=== PATIENT | male | born 1965 | race Caucasian/White ===

== ENCOUNTER 2017-08-09 16:45 | Emergency (ER) | payer BC ==
[2017-08-09] MEDS ORDERED: diphenhydrAMINE 50 MG/ML VIAL ONE (17:25)
[2017-08-09] MEDS ORDERED: Metoclopramide HCl 10 MG/2 ML VIAL ONE (17:25)
[2017-08-09] MEDS ORDERED: Ketorolac Tromethamine 30 MG/ML VIAL ONE (17:25)
[2017-08-09 18:02] LABS: Hemoglobin 14.4 g/dL (14.0-18.0); Lymphocytes 34 % (21-51); MDiff Complete? YES; Mean Corpuscular HGB CONC 34.7 g/dL (32.0-36.0); Mean Corpuscular Hemoglobin 31.1 pg (27.0-31.0); Mean Corpuscular Volume 89.8 fl (80.0-94.0); Mean Platelet Volume 7.6 fL (7.4-10.4); Monocytes 6 % (0-10); Neutrophil 60 % (42-75); PLT Morphology Comment Appears Adequate; Platelet Count 268 thou/uL (130-400); RBC Distribution Width 11.1 % (11.5-14.5); Red Blood Cell (RBC) Count 4.64 mill/uL (4.70-6.10)
[2017-08-09 18:07] LABS: ALT (SGPT) 21 U/L (8-55); AST (SGOT) 22 U/L (5-34); Albumin 4.3 g/dL (3.5-5.0); Alkaline Phosphatase 59 U/L (40-150); Anion Gap 16 mmol/L (10-20); BUN (Urea Nitrogen) 14 mg/dL (8.4-25.7); Bilirubin, Total 0.4 mg/dL (0.2-1.2); Calc. Creatinine Clearance 0 mL/min (70-130); Calcium 9.3 mg/dL (7.8-10.44); Carbon Dioxide 26 mmol/L (22-29); Chloride 102 mmol/L (98-107); Estimated GFR-MDRD 83; Globulin 3.4 g/dL (2.4-3.5); Glucose 113 mg/dL (70-105); Lipase 36 U/L (8-78); Potassium 3.8 mmol/L (3.5-5.1); Protein, Total 7.7 g/dL (6.0-8.3); Sodium 140 mmol/L (136-145)
[2017-08-09 20:03] LABS: Actual Bicarbonate (HCO3a) 27.3 mEq/L (22-26); Base Excess (BEa) 1.9 mEq/L (0 (+/-) 2.5); CO2 Tension 45.7 mmHg (35.0-45.0); Hemoglobin (Hb) 13.4 g/dL (14.0-18.0); O2 Tension (PaO2) 98.7 mmHg (80.0-100.0)
[2017-08-09 20:04] LABS: Analyzer IN Cardio ER; Calcium, Ionized 1.2 mmol/L (1.12-1.30)
[2017-08-09 20:05] LABS: ALV-art Gradient -6.095 (0-20); Puncture Site RRA
== END 2017-08-09 20:45 | disposition home or self-care (01) ==
LOC: SCSER 16:45
DX: R51 Headache (principal); I10 Essential (primary) hypertension; F41.9 Anxiety disorder, unspecified; Z79.899 Other long term (current) drug therapy
CPT/HCPCS: 80053; 82805; 83690; 85025; 96365; 96375; J1200; J1885; J2765

== ENCOUNTER 2017-10-04 12:51 | Outpatient (CLI) | payer BC | END 2017-10-04 12:52 | disposition home or self-care (01) | LOC: BICMRI 12:51 | PROVIDERS: ATTEND Family Medicine | DX: M54.2 Cervicalgia (principal); M54.5 Low back pain | CPT/HCPCS: 70210; 72141; 72148 ==

== ENCOUNTER 2017-11-19 11:51 | Emergency (ER) | payer BC ==
[2017-11-19] MEDS ORDERED: Proparacaine 0.5% Opth 15 ML BOT ONE (12:04)
[2017-11-19] MEDS ORDERED: Adacel (T-DAP) 0.5 ML VIAL ONE (12:37)
== END 2017-11-19 12:54 | disposition home or self-care (01) ==
LOC: SCSER 11:51
DX: T15.02XA Foreign body in cornea, left eye, initial encounter (principal); I10 Essential (primary) hypertension; F41.9 Anxiety disorder, unspecified; Z79.899 Other long term (current) drug therapy
CPT/HCPCS: 65220; 90471; 90715

== ENCOUNTER 2018-05-18 12:49 | Outpatient (CLI) | payer BC ==
--- NOTE | 2018-05-18 14:57 | CT ---
CERVICAL SPINE CT NONCONTRAST: INDICATION: Cervical spine radiculopathy, spondylosis. History of prior neck surgery. FINDINGS: There is an intradiskal prosthesis present at C3-4, C4-5, C5-6, and C6-7 levels. Anterior metallic p late and vertebral body screw formation present at C5, C6, and C7. There are anterior vertebral body screws traversing the C3, C4, and C5 vertebrae. There is no significant malalignment. There is str aightening of the normal cervical curvature. Degenerative hypertrophy at the C1-2 level present. No significant osseous compromise of the vertebral canal at the C1-2 level. C2-3: There is left lateral disk-osteophyte complex and uncinate process hypertrophy when combined w ith facet hypertrophy results in moderate osseous compromise of the left neural foramen. There is mi nimal narrowing of the right neural foramen. No high-grade osseous compromise of the central canal. C3-4: Bilateral facet and uncinate process hypertrophy are present which results in mild bilateral n eural foraminal narrowing. There is mild effacement of the vertebral canal. C4-5: There is prominent, asymmetric left facet degenerative hypertrophy which when combined with un cinate process hypertrophy results in severe osseous compromise of the left neural foramen. There is mild right foraminal narrowing. Mild central canal stenosis. C5-6: Broad-based osteophyte asymmetrically to the left results in mild narrowing of the central can al to the left of midline. There is moderate biforaminal narrowing due to uncinate process and facet hypertrophy. C6-7: There is mild central canal and mild left foraminal stenosis due to disk-osteophyte and uncina te process hypertrophy. There is mild to moderate narrowing of the right neural foramen. C7-T1. No significant compromise of the central canal or neural foramen identified. There is no obvious acute hardware complication. IMPRESSION: Multilevel postoperative and degenerative changes of the cervical spine as outlined above. POS: JAYDENK
== END 2018-05-18 12:50 | disposition home or self-care (01) ==
LOC: BICCT 12:49
DX: M47.22 Other spondylosis with radiculopathy, cervical region (principal); Z98.890 Other specified postprocedural states
CPT/HCPCS: 72125

== ENCOUNTER 2018-07-09 17:02 | Emergency (ER) | payer BC ==
--- NOTE | 2018-07-09 19:24 | RAD ---
LEFT ANKLE THREE VIEWS: INDICATIONS: Injury. Pain. FINDINGS: There is asymmetric soft tissue swelling at the lateral aspect of the left ankle. No underlying frac ture displacement is seen. The mortise is intact. IMPRESSION: Asymmetric soft tissue swelling of the lateral aspect of the left ankle, without underlying displaced fracture. POS: ДМИТРИЙ
== END 2018-07-09 18:00 | disposition home or self-care (01) ==
LOC: SCSER 17:02
DX: S93.402A Sprain of unspecified ligament of left ankle, initial encounter (principal); I10 Essential (primary) hypertension; F41.9 Anxiety disorder, unspecified; X50.9XXA Other and unspecified overexertion or strenuous movements or postures, initial encounter

== ENCOUNTER 2018-12-21 12:32 | Outpatient (CLI) | payer BC ==
--- NOTE | 2018-12-21 14:13 | CT ---
CT Lumbar Spine WO Con HISTORY: Low back pain with bilateral lower extremity radiculopathy. COMPARISON: None. FINDINGS: The vertebral bodies are normal in height. There is mild disc narrowing at L1-2. There is n o significant periaortic adenopathy and the visualized kidneys are normal. The canal itself is somewhat congenitally narrowed. T12-L1: Unremarkable. L1-2: Disc bulge and degenerative facet changes are present at this level there is a mild degree of c anal stenosis no foraminal narrowing. L2-3 again disc bulge and facet hypertrophic changes are seen and mild degree of canal stenosis is pr esent at this level. L3-4: Disc bulging facet and ligamentous hypertrophic changes cause a moderate degree of canal stenos is at this level. L4-5 disc bulge and facet hypertrophic changes are also causing a moderate degree of canal stenosis a t this level. L5-S1: No significant canal or foraminal narrowing appreciated at this level. IMPRESSION: Mild congenital narrowing of the canal which in conjunction with the disc and facet busch es cause areas of stenosis as described above.
--- NOTE | 2018-12-21 15:59 | CT ---
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 The patient has had two prior neck surgeries. History of the most recent surgery in January 2018 but with continued problems with bilateral shoulder pain that radiates into the skull. COMPARISON: CT cervical spine dated 05/18/18 from [facility] [place]. FINDINGS: Since the comparison examination, there has been posterolateral spinal instrumentation placed from C2 to T2. There are articular pillar screws on the right at C2, C3, C4, C5, C7, T1 and T2. On the left, articular pillar screws are seen at C2, C3, C4, C5, C6, C7, T1, and T2. There is no evidence of hard [place] loosening or fracture. There is solid interbody fusion seen at C3-4, C4-5, C5-6, and C6-7. There are interbody cages at C3-4 , C4-5. There are fibular strut grafts at C5-6 and C6-7. There is an ACDF spanning C5 through C7. Th e anterior cervical and interbody fixation is stable from the comparison. No osseous central canal is grossly evidence. There is uncovertebral hypertrophy at C2-C3. There is no appreciable osseous central canal or neural foraminal narrowing. C3-4: There is mild uncovertebral hypertrophy and facet hypertrophy but no appreciable osseous neural foraminal narrowing. At C4-5, there is no appreciable osseous central canal or neural foraminal narrowing. At C5-6, there is no appreciable osseous central canal or neural foraminal narrowing. At C6-7, there is no appreciable osseous central canal or neural foraminal narrowing. At C7-T1, there is no appreciable osseous central canal narrowing. The spinal alignment appears within normal limits. Craniocervical junction demonstrates moderate degenerative changes but no acute osseous abnormality. IMPRESSION: 1. Postoperative cervical spine with interval posterolateral cervical and upper thoracic interbo dy fusion spanning C2 through T2. There is solid osseous incorporation of the interbody bone graft fr om C3-4 through C6-7. 2. No appreciable osseous central canal or neural foraminal narrowing is demonstrated. POS: PARIS
--- NOTE | 2018-12-21 16:11 | CT ---
CT OF THE THORACIC SPINE WITHOUT CONTRAST: 12/21/18 INDICATION: History of pseudoarthrosis and radiculopathy. Patient had pseudoarthrosis after fusion arthrodesis wi th cervical radiculopathy. Patient had two prior neck surgeries, the last one being in January 2018 wi th continued problems. The patient is having bilateral shoulder pain that radiates into the skull. COMPARISON: None. FINDINGS: There is partial visualization of the cervical thoracic instrumentation detailed on the separately di ctated, concurrently performed noncontrast CT of the cervical spine. Please see this dictation for fu ll details concerning this instrumentation and the anterior and posterior interbody fusion of the cer vical and upper thoracic spine. There is multilevel marginal osteophytes and disc degenerative disease of the thoracic spine. There i s no acute fracture or subluxation evident. Spinal alignment is preserved. At C7-T1, there is no appreciable osseous central canal or neural foraminal narrowing. At T1-T2, there is facet hypertrophy and a broad based disc osteophyte complex inducing mild bilatera l osseous neural foraminal narrowing. At T2-T3, there is facet hypertrophy inducing mild bilateral osseous neural foraminal narrowing. There is an ununited T2 spinous process fracture. At T3-T4, there is some calcification of the right posterolateral ligamentum flavum. There is mild fa cet hypertrophy. There is mild right osseous neural foraminal narrowing. At T4-T5, there is no appreciable osseous central canal or neural foraminal narrowing. At T5-T6, there is no appreciable osseous central canal or neural foraminal narrowing. At T6-T7, there is no appreciable osseous central canal or neural foraminal narrowing. At T7-T8, there is no appreciable osseous central canal or neural foraminal narrowing. At T8-T9, there is no appreciable osseous central canal or neural foraminal narrowing. At T9-T10, there is no appreciable osseous central canal or neural foraminal narrowing. At T10-T11, there is no appreciable osseous central canal or neural foraminal narrowing. At T11-T12, there is no appreciable osseous central canal or neural foraminal narrowing. At T12-L1, there is no appreciable osseous central canal or neural foraminal narrowing. The visualized lungs are clear. There are no definite acute abnormalities seen within the visualized aspects of the mediastinum or upper retroperitoneum. IMPRESSION: 1. Moderate spondylosis of the thoracic spine. There is mild bilateral osseous neural foraminal narrowing at T1-T2, T2-T3 due to facet hypertrophy and a disc osteophyte complex. There is also mild right osseous neural foraminal narrowing at T3-T4 due to calcification and ligamentum flavum and face t hypertrophy. 2. Ununited spinous process fracture at T2. POS: BH
== END 2018-12-21 12:33 | disposition home or self-care (01) ==
LOC: BICCT 12:32
PROVIDERS: ATTEND Orthopaedic Surgery Orthopaedic Surgery of the Spine
DX: M96.0 Pseudarthrosis after fusion or arthrodesis (principal); M54.12 Radiculopathy, cervical region; M48.04 Spinal stenosis, thoracic region; M47.814 Spondylosis without myelopathy or radiculopathy, thoracic region; S22.028A Other fracture of second thoracic vertebra, initial encounter for closed fracture
CPT/HCPCS: 72125; 72128; 72131

== ENCOUNTER 2019-01-07 06:55 | Day surgery (SDC) | payer BC ==
[2019-01-04 11:20] VITALS: BMI 24.1
--- NOTE | 2019-01-07 10:12 | OP ---
DATE OF PROCEDURE: 01/07/2019 PROCEDURES PERFORMED: Esophagogastroduodenoscopy with biopsy and balloon dilation. INDICATION FOR PROCEDURE: Dysphagia. DESCRIPTION OF PROCEDURE: After the risks and benefits of the procedure were explained to the patient including risks of bleeding, infection, perforation, reactions to anesthesia, aspiration and/or pain, informed consent was obtained. The patient was then taken to the endoscopy suite, where deep sedation was administered via propofol and anesthesia support. Once adequate sedation was achieved, the standard gastroscope was introduced into the mouth with intubation of the esophagus, stomach, and the proximal small intestine with the findings listed below. The patient tolerated the procedure well with no immediate perioperative complications. Upon conclusion of the procedure, all equipment was removed from the patient and he was transferred to Day Stay in satisfactory condition. FINDINGS: Esophagus: Normal-appearing mucosa was seen in the proximal, mid, and distal esophagus. However, mild luminal narrowing was seen in the distal esophagus at the gastroesophageal junction, but was easily traversed with the standard gastroscope. Otherwise, there was no evidence of erosions, ulcerations, mass, lesions, or active/recent bleeding. Given the symptoms of dysphagia, biopsies were taken from both the proximal and distal esophagus for possible eosinophilic esophagitis. Given the mild luminal narrowing of the distal esophagus without overt stricture formation, the distal esophagus was dilated using a CRE-TTS balloon starting at 15 mm and successively dilating to 18 mm in size. A small mucosal tear was noted at the GE junction with any further dilation then ceased at that point. Stomach: Normal-appearing mucosa was seen in the gastric cardia, fundus, body, greater curvature, antrum, and incisura. There was no evidence of erosions, ulcerations, mass, lesions, or active/recent bleeding. Duodenum: Normal-appearing mucosa was seen in both the duodenal bulb and second portion of the duodenum. There was no evidence of erosions, ulcerations, mass, lesions, or active/recent bleeding. IMPRESSION: 1. Mild luminal narrowing without overt stricture formation in the distal esophagus status post dilation with CRE-TTS balloon to 18 mm. 2. Otherwise normal upper endoscopy. RECOMMENDATIONS: 1. We will follow up on the biopsy results with further care guided by pathology report and possible placement on fluticasone for eosinophilic esophagitis if positive. 2. Would increase omeprazole to 40 mg daily given evidence of acid reflux in the past and possible source of his dysphagia symptoms. 3. Continue current medications. 4. Followup in the GI clinic in 3 weeks for repeat evaluation of his dysphagia symptoms. If he has continued to have dysphagia symptoms with negative biopsies , would then proceed with a barium swallow for intraluminal radiological evaluation and possible osteophytosis contributing to his dysphagia symptoms. Job ID: [id number] JUSTINA
[2019-01-07] MEDS ORDERED: PROPOFOL 200 MG/20 ML VIAL ONE (16:49)
[2019-01-07] MEDS ORDERED: Lidocaine 1% PF 5 ML VIAL ONE (16:49)
== END 2019-01-07 10:15 | disposition home or self-care (01) ==
LOC: SDC 06:55
PROVIDERS: ATTEND Internal Medicine
PROC: 0DB18ZX Excision of Upper Esophagus, Via Natural or Artificial Opening Endoscopic, Diagnostic (ICD-10-PCS; principal; 2019-01-07)
PROC: 0D758ZZ Dilation of Esophagus, Via Natural or Artificial Opening Endoscopic (ICD-10-PCS; principal; 2019-01-07)
PROC: 0DB38ZX Excision of Lower Esophagus, Via Natural or Artificial Opening Endoscopic, Diagnostic (ICD-10-PCS; principal; 2019-01-07)
DX: K22.2 Esophageal obstruction (principal); K21.0 Gastro-esophageal reflux disease with esophagitis; F41.9 Anxiety disorder, unspecified; Z79.899 Other long term (current) drug therapy; Z98.890 Other specified postprocedural states
CPT/HCPCS: 88305; 88312; 88313